=== PATIENT | female | born 1975 | race African-American/Black ===

== ENCOUNTER 2023-04-26 02:11 | Emergency (ER) | payer SELFPAY ==
--- NOTE | ~2023-04-26 | XR_ITS ---
Portable chest x-ray Comparison: None Clinical History: Cough Findings: Lungs are clear, without focal consolidation or pleural effusion. Cardiomediastinal silho uette is unremarkable. Bones and soft tissues are unremarkable. Impression: Normal chest. Reviewed, dictated and finalized at location . ING TECHNICIAN Impression: Normal chest.
[2023-04-26 02:22] VITALS: BP 146/90; PULSE 85; RESP 18; TEMP 36.8; O2SAT 99
[2023-04-26 03:08] VITALS: O2SAT 99
--- NOTE | 2023-04-26 03:15 | ED.URI ---
HPI - URI/Sore Throat General Chief Complaint: Upper Respiratory Infection Stated Complaint: uri Time Seen by Provider: 04/26/23 03:11 History of Present Illness HPI Narrative: patient presents the emergency department with a cough that has been persistent for the past 3 weeks. She denies shortness of breath. Has some chest wall discomfort that improves with a heating pad. She was seen by her doctor and started on an antibiotic that did not help her cough. She is requesting an IM dose of steroids because she gets this every year . She is also requesting a chest x-ray. patient is pleasant in no distress her exam is benign lungs clear to auscultation no hypoxemia Related Data Allergies Allergy/AdvReac Type Severity Reaction Status Date / Time No Known Allergies Allergy Verified 04/26/23 03:09 Review of Systems Review of Systems: negative except what is documented in the HPI Exam Narrative: GENERAL: Well-appearing, well-nourished, and in no acute distress. HEAD: Normocephalic, atraumatic. EYES: PERRLA and EOMI. ENT: Nares clear, no rhinorrhea or epistaxis. Mucous membranes moist. NECK: Supple. CHEST: Clear to auscultation. No respiratory distress. HEART: Regular rate and rhythm. ABDOMEN: Soft, nontender, nondistended. EXTREMITIES: Normal range of motion. No edema. SKIN: Warm, dry, no rash. NEURO: No focal deficits. Alert and oriented x3. PSYCH: Normal mood and affect. Course Course Emergency Course: cough persistent but common with post upper respiratory infections. Patient however is requesting steroids. Steroids and chest x-ray ordered. Plan for discharge after wards Vital Signs Vital signs: Vital Signs Temperature 36.8 C 04/26/23 02:22 Pulse Rate 85 04/26/23 02:22 Respiratory Rate 18 04/26/23 02:22 Blood Pressure 146/90 H 04/26/23 02:22 Pulse Oximetry 99 04/26/23 02:22 Oxygen Delivery Room Air 04/26/23 02:22 Temperature 36.8 C 04/26/23 02:22 Pulse Rate 85 04/26/23 02:22 Respiratory Rate 18 04/26/23 02:22 Blood Pressure 146/90 H 04/26/23 02:22 Pulse Oximetry 99 04/26/23 03:08 Oxygen Delivery Room Air 04/26/23 03:08 MDM - URI/Sore Throat Lab Data Labs: Lab Results 04/26/23 Range/Units 03:11 Influenza A (RT-PCR) Pending Influenza B (RT-PCR) Pending RSV (RT-PCR) Pending SARS-CoV-2 RNA (RT-PCR) Pending Discharge Plan Discharge Clinical Impression: Cough Patient Disposition: Home, Self-Care Condition: Stable Instructions: Antibiotic Form, Cold Symptoms (ED) Prescriptions: New prednisone 50 mg tablet 50 mg PO DAILY Qty: 4 0RF Follow-up/Referrals: Tylor,Darell Coombs MD [Primary Care Provider] - Time of Disposition: 03:18
[2023-04-26] MEDS: methylPREDNISolone SOD SUCC 125 MG VIAL IM (03:22)
[2023-04-26 03:51] LABS: Influenza A QL RT-PCR Negative (Negative); Influenza B QL RT-PCR Negative (Negative); RSV RNA, RT-PCR Negative (Negative); SARS-CoV-2 RNA PCR Negative (Negative)
== END 2023-04-26 04:06 | disposition home or self-care (01) ==
LOC: ANHED 03:32
PROVIDERS: Emergency Provider Emergency Medicine; PCP Family Medicine
DX: R05.9 Cough, unspecified (principal); Z20.822 Contact with and (suspected) exposure to COVID-19
CPT/HCPCS: 71045; 87637; 96372; 99283; J2930